=== PATIENT | male | born 1960 | race Caucasian/White ===

== ENCOUNTER → 2016-12-15 | Outpatient (CLI) | payer OTHER ==
--- NOTE | 2016-12-15 16:27 | DIAGNOSTIC IMAGING REPORT ---
L-SPINE MIN 4 VIEWS ROUTINE CLINICAL HISTORY: Low back pain with sciatica. Myalgias. COMPARISON STUDY: No previous studies for comparison. FINDINGS: There are postsurgical changes of lower lumbar laminectomies. There are postsurgical changes involving the left acetabulum and left sacroiliac joint. There is a mild spinal curvature convex to the left. No acute fractures or traumatic subluxations are visualized. There is no significant disc space narrowing. No destructive lesions are evident. IMPRESSION: Postsurgical change. No fractures, subluxations or traumatic subluxations. No significant disc space narrowing. Electronically signed by: Tyrese Campos M.D. 12/15/2016 4:26 PM Dictated Date/Time: 12/15/2016 4:24 PM
[2016-12-15 17:57] LABS: ALT/SGPT 25 U/L (12-78); C-REACTIVE PROTEIN 3.78 mg/dl (0-0.29)
[2016-12-15 18:00] LABS: ALKALINE PHOSPHATASE 93 U/L (45-117); AST/SGOT 21 U/L (15-37)
[2016-12-19 18:18] LABS: ALBUMIN 3.8 G/DL (3.8-4.8); TOTAL PROTEIN 6.8 G/DL (6.2-8.3)
== END | disposition home or self-care (01) ==
LOC: C.LAB1850 15:54
PROVIDERS: ATTEND Internal Medicine Rheumatology
DX: M54.40 Lumbago with sciatica, unspecified side (principal); M79.1 Myalgia; E55.9 Vitamin D deficiency, unspecified

== ENCOUNTER → 2017-07-07 | Outpatient (CLI) | payer OTHER ==
--- NOTE | 2017-07-07 11:15 | DIAGNOSTIC IMAGING REPORT ---
L SHOULDER MIN 2 VIEWS ROUTINE HISTORY: 56 years-old Male M25.512 Left shoulder painM35.3 PMR (polymyalgia rheumatica)M75. Acute left shoulder pain without reported trauma COMPARISON: None available TECHNIQUE: 3 views of the left shoulder FINDINGS: Mild acromioclavicular and mild glenohumeral osteoarthritis. There is no acute fracture or subluxation identified. No intra-articular loose body identified. Soft tissues are unremarkable. IMPRESSION: Mild degenerative changes without acute fracture or dislocation. The above report was generated using voice recognition software. It may contain grammatical, syntax or spelling errors. Electronically signed by: Ambrose Herrera M.D. 07/07/2017 11:13 AM Dictated Date/Time: 07/07/2017 11:12 AM
== END | disposition home or self-care (01) ==
LOC: C.RAD1850 10:59
PROVIDERS: ATTEND Internal Medicine Rheumatology
DX: M25.512 Pain in left shoulder (principal); M35.3 Polymyalgia rheumatica; M75.22 Bicipital tendinitis, left shoulder

== ENCOUNTER → 2017-12-15 | Outpatient (CLI) | payer OTHER ==
--- NOTE | 2017-12-15 10:53 | DIAGNOSTIC IMAGING REPORT ---
RIGHT HAND 3 VIEWS HISTORY: Right hand pain. COMPARISON: None. FINDINGS: There is no fracture or dislocation. Mild soft tissue swelling within the PIP joints of the second and third fingers. Mild caudal space within the second MCP joint. Question of a tiny periarticular erosion at the base of the distal phalanx of the index finger. There is adjacent tiny ossific density. Therefore, this could also be due to old trauma. Remaining cartilage spaces are maintained. No radiopaque foreign bodies. IMPRESSION: 1. No fractures within the right hand. 2. Mild soft tissue swelling at the PIP joints of the second and third fingers. There is 3. Question tiny periarticular erosion versus old posttraumatic changes at the base of the distal phalanx of the index finger. Electronically signed by: Jamel Javier M.D. 12/15/2017 10:52 AM Dictated Date/Time: 12/15/2017 10:48 AM
== END | disposition home or self-care (01) ==
LOC: C.RAD1850 10:37
PROVIDERS: ATTEND Internal Medicine Rheumatology
DX: M25.511 Pain in right shoulder (principal)

== ENCOUNTER → 2017-12-22 | Outpatient (CLI) | payer OTHER ==
--- NOTE | 2017-12-22 10:13 | DIAGNOSTIC IMAGING REPORT ---
RIGHT SHOULDER 3 VIEWS CLINICAL HISTORY: Right shoulder pain. FINDINGS: 3 views of the right shoulder are obtained. No prior studies are available for comparison at the time of dictation. The skeletal structures are well mineralized. No fracture or dislocation is seen. Productive degenerative change is noted at the acromioclavicular joint. The glenohumeral articulation is preserved. The overlying soft tissues are normal in appearance. The imaged right lung parenchyma appears clear. IMPRESSION: No acute bony abnormality is seen in the right shoulder. Electronically signed by: Douglas Cornejo M.D. 12/22/2017 10:12 AM Dictated Date/Time: 12/22/2017 10:12 AM
== END | disposition home or self-care (01) ==
LOC: C.RDSM 10:05
PROVIDERS: ATTEND Internal Medicine
DX: M25.511 Pain in right shoulder (principal)

== ENCOUNTER → 2018-03-14 | Outpatient (CLI) | payer OTHER ==
[2018-03-19 04:34] LABS: PARVOVIRUS IgM INDEX 0.3 (<0.9)
== END | disposition home or self-care (01) ==
LOC: C.LAB1850 12:31
PROVIDERS: ATTEND Internal Medicine Rheumatology
DX: M35.3 Polymyalgia rheumatica (principal); M25.512 Pain in left shoulder; M79.641 Pain in right hand; M19.90 Unspecified osteoarthritis, unspecified site

== ENCOUNTER → 2018-03-23 | Outpatient (CLI) | payer OTHER ==
--- NOTE | 2018-03-23 13:38 | DIAGNOSTIC IMAGING REPORT ---
BONE SCAN WHOLE BODY CLINICAL HISTORY: M19.90 inflammatory arthritis COMPARISON STUDY: No previous studies for comparison. FINDINGS: Patient was injected with 25.7 mCi of technetium 99m MDP. Three-hour delayed whole body images were acquired. Mild increased activity within the shoulders is likely degenerative/arthritic. Subtle increased activity within the left sternoclavicular joint is likely degenerative. Minimal asymmetric increased activity within the left hip is likely degenerative. There is a focus of increased activity within the right hindfoot, likely degenerative or posttraumatic. There is a focus of increased activity at the level the left first metatarsal phalangeal joint, likely degenerative. There is a subtle focus of increased activity involving the distal phalanx of the right second third toe. IMPRESSION: Scattered foci of increased activity likely on a degenerative/arthritic basis. Electronically signed by: Tyrese Campos M.D. 03/23/2018 1:36 PM Dictated Date/Time: 03/23/2018 1:34 PM
== END | disposition home or self-care (01) ==
LOC: C.NUCL 09:58
PROVIDERS: ATTEND Internal Medicine Rheumatology
DX: R94.8 Abnormal results of function studies of other organs and systems (principal); M19.90 Unspecified osteoarthritis, unspecified site